=== PATIENT | female | born 1955 | race Caucasian/White ===

== ENCOUNTER 2021-08-30 09:48 | Outpatient (CLI) | payer BC, SELFPAY ==
--- NOTE | 2021-08-30 10:02 | MM_ITS ---
WS: [id number] BILATERAL DIGITAL SCREENING MAMMOGRAPHY WITH CAD CLINICAL INFORMATION: SCREENING HISTORY: Screening mammogram. No current complaints. COMPARISON: March 30, 2020 TECHNIQUE: Bilateral CC and MLO views. FINDINGS: The breasts are composed of heterogeneous fibroglandular density tissue, which can limit the detectio n of small underlying mass lesions. Vascular calcification. A few incidental punctate calcifications LEFT breast. No suspicious mass, asymmetry, calcifications, or architectural distortion. No evidence of malignancy. MM/[place] [id number] IMPRESSION: BI-RADS: 2-Benign FOLLOW UP: 1 Year Follow-up Recommend return to annual screening mammography.
== END 2021-08-30 09:49 | disposition home or self-care (01) ==
PROVIDERS: Family Provider Registered Nurse; PCP Registered Nurse; Visit Provider Family Medicine
DX: Z12.31 Encounter for screening mammogram for malignant neoplasm of breast (principal)
CPT/HCPCS: 77067

== ENCOUNTER 2022-09-03 11:30 | Outpatient (CLI) | payer BC, SELFPAY ==
--- NOTE | 2022-09-03 11:41 | MM_ITS ---
WS: [id number] VIEWS: MLO and CC views both breasts. 3D digital tomosynthesis is also included in this exam. Comparison made with prior exam of 12/31/2018, 03/30/2020, 08/30/2021. Findings: There was no sign of mass, architectural distortion or suspicious calcification in either breast. Sta ble appearing nodular densities in both breasts.The breasts are heterogeneously dense. MM/[place] [id number] Impression: BI-RADS: 2-Benign FOLLOW-UP: 1 Year Follow-up This mammogram was also analyzed by the Computer Aided Detection System R2 Imag e Portrait Consultant.
== END 2022-09-03 11:31 | disposition home or self-care (01) ==
LOC: RAD 11:31
PROVIDERS: PCP Family Medicine; Visit Provider Family Medicine
DX: Z12.31 Encounter for screening mammogram for malignant neoplasm of breast (principal)
CPT/HCPCS: 77063; 77067

== ENCOUNTER 2023-07-12 10:22 | Emergency (ER) | payer BC, SELFPAY ==
[2023-07-12 10:47] VITALS: BP 136/80; PULSE 87; RESP 18; TEMP 36.6; O2SAT 98; BMI 50.1
--- NOTE | 2023-07-12 10:54 | ED_ITS ---
HPI - Extremity Injury (Upper) General: Chief Complaint: Extremity Injury, Upper Stated Complaint: right arm injury Time Seen by Provider: 07/12/23 10:25 Source: patient Mode of arrival: ambulatory Limitations: no limitations History of Present Illness: Patient is a nice 68-year-old female presents to ED today for evaluation of a right elbow injury that she sustained just prior to arrival after she a ccidentally tripped and fell and landed onto the elbow. She denies any other injury sustained during the fall. She denies striking her head or LOC. No neck or back pain. Pain at the elbow joint seems to be worse with palpation and range of motion. MD complaint: injury to: right and elbow Onset (ago): hour(s) Other Extremity Injury: Right: elbow Other injuries: none Place: home Severity: moderate Relieving factors: immobilization Exacerbating factors: movement of extremity Context: fall and direct blow Associated symptoms: Reports no associated symptoms; Denies neck pain Review of Systems Card: Denies: chest pain, palpitations, lightheadedness, syncope or pre- syncope Musc: Reports: joint pain (R elbow) and limited range of motion (R elbow); Denies: neck pain, back pain, extremity pain, extremity swelling, joint redness or joint warmth Neuro: Denies: numbness in extremities or sensory changes Physical Exam Const: COMMON NORMALS: no acute distress, no limitations, alert and well nourished GENERAL APPEARANCE: cooperative NUTRITIONAL APPEARANCE: obese morbidly obese (BMI over 50) HENMT: COMMON NORMALS: normocephalic and atraumatic HEAD & SCALP: normal to inspection, normocephalic and atraumatic FACE & SINUS: normal facial exam Neck/C-Spine: COMMON NORMALS: full ROM GENERAL: Yes normal visual inspection CERVICAL SPINE: No Cervical spine tenderness Back/Pelvis: COMMON NORMALS: thoracic and lumbar spine normal to inspection and no thoracic nor lumbar tenderness Extremity: COMMON NORMALS: normal to inspection and capillary refill normal GENERAL: Yes normal exam except as noted RIGHT UPPER EXTREMITY: Yes shoulder joint (normal examination), Yes elbow joint (normal gross inspection; TTP with palpation and ROM) Right elbow: Yes ROM (significantly limited ROM due to pain) and Yes neurovascular exam (normal), Yes lower arm (TTP proximal to mid forearm; no edema noted; no bony deformity) and Yes wrist (normal examination) Neuro: COMMON NORMALS: moves all extremities, no focal motor deficits and no sensory deficits noted SENSORIUM/ORIENTATION: Yes alert Skin: TRAUMA: no lacerations or abrasions Course Consultations: Consultation #1: Dr. Rivas-recommends consult/follow up with orthopedics in [place] Consultation #2: Dr. Schmidt-[facility] orthopedic surgeon-will see patient in office next week Vital Signs: Vital signs: Vital Signs Temperature 98 F 07/12/23 10:47 Pulse Rate 82 07/12/23 10:58 Respiratory Rate 20 H 07/12/23 11:26 Blood Pressure 142/65 07/12/23 10:58 Pulse Oximetry 95 07/12/23 10:58 Oxygen Delivery Me thod Room Air 07/12/23 10:58 MDM - Extremity Injury (Upper) Medical Decision Making Patient here for right displaced intra-articular fracture of her radial head following a slip and fall. I have spoken to our orthopedic provider Dr. Rivas who recommended patient be seen in [place]. I spoke to Dr. Schmidt with [facility] orthopedics who will see her next week. She will be placed in a splint/sling and given pain medications. Return to ED precautions given. Lab Data Radiology Impressions Elbow X-Ray 07/12/23 10:58 IMPRESSION: 1. Displaced intra-articular fracture of the radial head. 2. Elbow joint effusion. Forearm X-Ray 07/12/23 10:58 IMPRESSION: 1. Comminuted displaced intra-articular fracture of the radial head. 2. Elbow joint effusion. 3. Intact distal radius and ulna. All radiology interpretation(s) finalized by discharge Discharge Plan Discharge Patient Disposition: Home Clinical Impression: Displaced fracture of head of right radius Qualifiers: Encounter type: initial encounter Fracture type: closed Qualified Code(s): S52.121A - Displaced fracture of head of right radius, initial encounter for closed fracture Condition: Stable Prescriptions: New hydrocodone-acetaminophen 5-325 mg tablet 1 tab PO .q 4-6 PRN (Reason: pain) Qty: 20 0RF No Action hydrocodone-acetaminophen 10-325 mg tablet 1 tab PO TID PRN (Reason: Pain) baclofen 10 mg tablet 10 mg PO TID lisinopril 10 mg tablet 10 mg PO DAILY ergocalciferol (vitamin D2) 1,250 mcg (50,000 unit) capsule 1 unit PO Q7D Rx Instructions: on zolpidem 10 mg tablet 10 mg PO BEDTIME pregabalin 100 mg capsule 100 mg PO TID Discharge Orders: Discharge ED (Routine); Ordered 07/12/23 Ordered By: Mariela Wright Referrals: Lilia Willams DO [Primary Care Provider] - Patient Instructions: Elbow Fracture (DC), ORIF of an Elbow Fracture (DC), Opioid Safety, Pain Management Activity Restrictions/Additional Instructions: As we discussed the [facility] orthopedic clinic should be contacting you on Saturday of next week. You most likely will not hear from them Saturday as it is a federal holiday. If you have not heard from them by Saturday please contact them. Dr. Schmidt was the orthopedic surgeon that I consulted with. His office phone number is [phone]. Coding Level of Care Code ED Torch Burner for Isabelle Sarabia
[2023-07-12 10:58] VITALS: BP 142/65; PULSE 82; RESP 17; O2SAT 95; BMI 48.0
--- NOTE | 2023-07-12 10:58 | XRR_ITS ---
PROCEDURE INFORMATION: Exam: XR Right Elbow Exam date and time: 07/12/2023 11:50 AM Age: 68 years old Clinical indication: Injury or trauma; Fall; Blunt trauma (contusions or hematomas); Elbow; Right; Additional info: Fall/injury TECHNIQUE: Imaging protocol: Radiologic exam of the right elbow. Views: 3 or more views. COMPARISON: No relevant prior studies available. FINDINGS: Bones/joints: There is a displaced intra-articular fracture of the radial head. A 1 cm fragment of the radial head is displaced anterolaterally by at least 8 mm from its donor site. Elbow joint alignment is normal. There is a large elbow joint effusion. Soft tissues: Visible soft tissues are unremarkable. XR/XR elbow RT min 3V* [id number] IMPRESSION: 1. Displaced intra-articular fracture of the radial head. 2. Elbow joint effusion.
--- NOTE | 2023-07-12 10:58 | XRR_ITS ---
PROCEDURE INFORMATION: Exam: XR Right Forearm Exam date and time: 07/12/2023 11:12 AM Age: 68 years old Clinical indication: Injury or trauma; Fall; Blunt trauma (contusions or hematomas); Arm, lower; Right; Additional info: Fall/injury TECHNIQUE: Imaging protocol: Radiologic exam of the right forearm. Views: 2 views. COMPARISON: No relevant prior studies available. FINDINGS: Bones/joints: Comminuted displaced intra-articular fracture of the distal radius. Satisfactory elbow alignment. Large elbow joint effusion. Distal radius and ulna are intact. Wrist alignment is grossly normal. Visible portions of the hand and carpal bones are grossly intact but suboptimally evaluated. Soft tissues: Unremarkable XR/XR forearm RT 2V [id number] IMPRESSION: 1. Comminuted displaced intra-articular fracture of the radial head. 2. Elbow joint effusion. 3. Intact distal radius and ulna.
[2023-07-12 11:26] VITALS: RESP 20
[2023-07-12] MEDS: morphine 4 mg/mL SDV 1 mL IM ×2 (11:26→14:19)
[2023-07-12 14:19] VITALS: RESP 16
== END 2023-07-12 15:10 | disposition home or self-care (01) ==
PROVIDERS: Emergency Provider Physician Assistant; PCP Family Medicine
DX: S52.121A Displaced fracture of head of right radius, initial encounter for closed fracture (principal); M25.421 Effusion, right elbow; W01.0XXA Fall on same level from slipping, tripping and stumbling without subsequent striking against object, initial encounter
CPT/HCPCS: 73080; 73090; 96372; 99284; J2270

== ENCOUNTER 2023-09-12 11:24 | Outpatient (CLI) | payer MEDICARE, SELFPAY ==
--- NOTE | 2023-09-12 11:30 | MM_ITS ---
WS: [id number] BILATERAL 3D TOMOSYNTHESIS DIGITAL SCREENING MAMMOGRAPHY WITH CAD CLINICAL INFORMATION: SCREENING HISTORY: Screening mammogram. No current complaints. COMPARISON: 2022 TECHNIQUE: Bilateral CC and MLO views. FINDINGS: The breasts are composed of heterogeneous fibroglandular density tissue, which can limit the detectio n of small underlying mass lesions. No suspicious mass, asymmetry, calcifications, or architectural d istortion. No evidence of malignancy. Vascular calcification. Incidental punctate calcifications. IMPRESSION: MM/[place] [id number] BI-RADS: 2-Benign FOLLOW UP: 1 Year Follow-up Recommend return to annual screening mammography.
== END 2023-09-12 11:25 | disposition home or self-care (01) ==
LOC: MOBLMAM 11:32
PROVIDERS: PCP Family Medicine; Visit Provider Family Medicine
DX: Z12.31 Encounter for screening mammogram for malignant neoplasm of breast (principal)
CPT/HCPCS: 77063; 77067

== ENCOUNTER → 2024-01-27 13:39 | Outpatient (BNVA) | payer MEDICARE, SELFPAY | PROVIDERS: PCP Family Medicine; Visit Provider Dermatology | DX: D04.4 Carcinoma in situ of skin of scalp and neck (principal); L57.0 Actinic keratosis; D18.01 Hemangioma of skin and subcutaneous tissue; L64.8 Other androgenic alopecia | CPT/HCPCS: 17000; 99214 ==

== ENCOUNTER 2024-02-24 12:53 | Emergency (ER) | payer MEDICARE, SELFPAY ==
[2024-02-24] VITALS (7 sets, daily range): BP systolic 108–150; BP diastolic 56–98; PULSE 53–65; RESP 16–17; TEMP 36.5; O2SAT 96–100; BMI 44.4
--- NOTE | 2024-02-24 12:54 | ECG_ITS ---
[facility] Test Date: 2024-02-24 Pat Name: Jillian Webb Department: Room: Gender: Female Web Applications Programmer: : 1955 Requested By: Deandre Vazquez Order Number: [id number] Damian MD: Freddy Mims M.D. Measurements Intervals [place] Rate: 67 P: 40 W[place]: 156 QRS: -51 QRSD: 102 T: -7 QT: 407 QTc: 433 Interpretive Statements SINUS RHYTHM WITH SINUS ARRHYTHMIA LEFT AXIS DEVIATION [QRS AXIS < -30] POSSIBLE ANTERIOR MYOCARDIAL INFARCTION , PROBABLY OLD [30 ms Q WAVE IN V3/V4, OR R < 0.2 mV IN V4] No previous ECG available for comparison Electronically Signed On 02-25-2024 7:38:37 CDT by Freddy Mims M.D. [id number] f
--- NOTE | 2024-02-24 13:00 | XR_ITS ---
WS: [id number] Examination: XR chest 1V portable [id number] Reason for Exam: dyspnea/cough Date: March 03, 2024 Comparison: None. Findings: The heart is nonenlarged. The mediastinum not widened. There is no failure or effusion. There is no consolidation XR/XR chest 1V portable [id number] Impression: No acute lung process is seen.
--- NOTE | 2024-02-24 13:01 | CT_ITS ---
WS: [id number] CT HEAD TECHNIQUE: Noncontrast CT of the head obtained from the skullbase to the vertex. CLINICAL INFORMATION: dizziness COMPARISON: None. DLP: 1064.[address] scans at [facility] use at least one of these dose optimization techniques: automated e xposure control; mA and/or kV adjustment per patient size (includes targeted exams where dose is matc hed to clinical indication); or iterative reconstruction. FINDINGS: No evidence of intracranial hemorrhage or mass effect. Ventricular system and basal cisterns are tracey nt. Mild small vessel changes with mild parenchymal volume loss. No extra-axial fluid collections. No evidence of mass or mass effect. Vascular calcification. Paranasal sinuses and mastoid air cells are well aerated. .Normal visualized soft tissues. CT/CT head wo con* [id number] IMPRESSION: 1. No evidence of intracranial hemorrhage or mass effect. 2. Mild small vessel changes. Mild parenchymal volume loss. 3. No acute intracranial findings.
--- NOTE | 2024-02-24 13:28 | ED_ITS ---
HPI - Dizziness 2 General: Chief Complaint: Dizziness Stated Complaint: Dizzy, nausea Time Seen by Provider: 02/24/24 13:00 History of Present Illness: HPI Narrative: 60-year-old female presents to the [facility] ency room via EMS with complaints of dizziness and nausea that began this morning around 430. No vomiting although she has been very nauseous. She denies any chest pain. She has had some difficulty with urination she denies any fever sweats chills denies any shortness of breath. No vertiginous-like symptoms. Associated symptoms: Denies chest pain or chills Related Data Home Medications Medication Instructions Recorded Confirmed baclofen 10 mg tablet 10 mg PO TID 07/12/23 02/24/24 ergocalciferol (vitamin D2) 1,250 1 unit PO Q7D 07/12/23 02/24/24 mcg (50,000 unit) capsule hydrocodone 10 mg-acetaminophen 1 tab PO TID PRN Pain 07/12/23 02/24/24 325 mg tablet lisinopril 10 mg tablet 10 mg PO DAILY 07/12/23 02/24/24 pregabalin 100 mg capsule 100 mg PO TID 07/12/23 02/24/24 zolpidem 10 mg tablet 10 mg PO BEDTIME 07/12/23 02/24/24 calcium citrate 200 mg (950 mg) 200 mg PO BID 02/24/24 02/24/24 tablet multivitamin 1 tab PO BID 02/24/24 02/24/24 Allergies Allergy/AdvReac Type Severity Reaction Status Date / Time No Known Allergies Allergy Verified 02/24/24 13:02 Review of Systems 2 Const: Denies: fever(s) or chills Card: Denies: chest pain Resp: Denies: dyspnea GI: Denies: abdominal pain : Denies: dysuria, urinary frequency or urinary urgency Musc: Denies: neck pain or back pain Skin/Breast: Denies: rash Neuro: Reports: difficulty walking and dizziness Physical Exam 2 Const: COMMON NORMALS: no acute distress GENERAL APPEARANCE: cooperative and comfortable ORIENTATION/CONSCIOUSNESS: Yes awake, Yes oriented to person, Yes oriented to place and Yes oriented to time HENMT: COMMON NORMALS: normocephalic, atraumatic and hearing grossly normal bilaterally HEAD & SCALP: normocephalic and atraumatic Resp: COMMON NORMALS: normal respiratory effort, No retractions, No use of accessory muscles and clear to auscultation bilaterally AUSCULTATION: clear to auscultation bilaterally Cardio: COMMON NORMALS: regular rate, regular rhythm and No murmurs present (Cardio) RATE: regular rate RHYTHM: regular rhythm GI: COMMON NORMALS: Soft to palpation and No hepatosplenomegaly present A USCULTATION: Yes normoactive bowel sounds PALPATION: Yes Soft to palpation, No Tenderness to palpation present (GI), No Guarding due to palpation present (GI) and Yes No hepatosplenomegaly present Extremity: COMMON NORMALS: normal to inspection, capillary refill normal, no clubbing, cyanosis or edema, no calf tenderness and no pedal edema Neuro: SENSORIUM/ORIENTATION: Yes oriented to person, Yes oriented to place and Yes oriented to time Skin: COMMON NORMALS: no rashes or lesions noted GENERAL SKIN EXAM: no rashes or lesions noted Course 2 Vital Signs: Vital signs: Vital Signs Temperature 97.7 F 02/24/24 12:54 Pulse Rate 57 L 02/24/24 17:35 Respiratory Rate 16 02/24/24 13:57 Blood Pressure 145/65 02/24/24 17:35 Pulse Oximetry 99 02/24/24 17:35 Oxygen Delivery Me thod Room Air 02/24/24 16:30 MDM - Dizziness Medical Decision Making Patient's labs show elevated BUN and creatinine mild volume depletion should her symptoms largely resolved after IV fluid she is up and ambulatory without difficulty will discharge patient home she had no focal neurologic deficits are noted labs imaging EKG all reviewed as found in the chart. Medical Records I reviewed the patient's medical records. Lab Data I reviewed the patient's lab results. 02/24/24 14:46 02/24/24 13:32 Radiology Impressions Chest X-Ray 02/24/24 13:00 Impression: No acute lung process is seen. Head CT 02/24/24 13:01 IMPRESSION: 1. No evidence of intracranial hemorrhage or mass effect. 2. Mild small vessel changes. Mild parenchymal volume loss. 3. No acute intracranial findings. Laboratory Results WBC 6.00 10^3/uL (3.29-11.43) 02/24/24 14:46 Corrected WBC Cancelled 02/24/24 13:32 RBC 4.25 10^6/uL (3.85-5.65) 02/24/24 14:46 Hgb 13.10 g/dL (11.27-16.99) 02/24/24 14:46 Hct 41.6 % (36-47) 02/24/24 14:46 MCV 97.9 fl (85-98) 02/24/24 14:46 MCH 30.8 pg (27-33) 02/24/24 14:46 MCHC 31.5 g/dL (30-55) 02/24/24 14:46 RDW 13.6 % (12.1-15.1) 02/24/24 14:46 Plt Count 246 10^3/cmm (157-399) 02/24/24 14:46 MPV 9.5 fL (7.4-10.4) 02/24/24 14:46 Gran % Cancelled 02/24/24 13:32 Neut % (Auto) 66.3 % 02/24/24 14:46 Lymph % (Auto) 26.8 % 02/24/24 14:46 [place] % (Auto) 5.2 % 02/24/24 14:46 Eos % (Auto) 0.8 % 02/24/24 14:46 Baso % (Auto) 0.7 % 02/24/24 14:46 Neut # (Auto) 3.98 10^3/uL (1.8-7.7) 02/24/24 14:46 Lymph # (Auto) 1.6 10^3/uL (0.8-4.8) 02/24/24 14:46 [place] # (Auto) 0.3 10^3/uL (0.2-0.9) 02/24/24 14:46 Eos # (Auto) 0.1 10^3/uL (0.0-0.8) 02/24/24 14:46 Baso # (Auto) 0.0 10^3/uL (0.0-0.1) 02/24/24 14:46 Absolute Gran (auto) Cancelled 02/24/24 13:32 Nucleated RBC % (auto) 0 % 02/24/24 14:46 Nucleated RBCs # 0.0 /100WBC 02/24/24 14:46 Sodium 139 mmol/L (136-145) 02/24/24 13:32 Potassium 5.2 mmol/L (3.5-5.1) H 02/24/24 13:32 Chloride 110 mmol/L (98-107) H 02/24/24 13:32 Carbon Dioxide 14 mmol/L (22-29) L 02/24/24 13:32 Anion Gap 20.2 (5-19) H 02/24/24 13:32 BUN 32 mg/dL (8-23) H 02/24/24 13:32 Creatinine 1.4 mg/dL (0.5-0.9) H 02/24/24 13:32 GFR Calculation 37.4 mL/min (90-130) L 02/24/24 13:32 Glucose 106 mg/dL (65-115) 02/24/24 13:32 Calculated Osmolality 295 mOsm/kg (285-295) 02/24/24 13:32 Calcium 9.2 mg/dL (8.5-10.5) 02/24/24 13:32 Total Bilirubin 0.3 mg/dL (0.15-1.2) 02/24/24 13:32 AST 19 U/L (0-32) 02/24/24 13:32 ALT 11 U/L (0-33) 02/24/24 13:32 Alkaline Phosphatase 116 U/L (35-105) H 02/24/24 13:32 Total Protein 7.1 g/dL (6.6-8.7) 02/24/24 13:32 Albumin 3.8 g/dL (3.5-5.2) 02/24/24 13:32 Globulin 3.3 g/dL (1.3-4.6) 02/24/24 13:32 Urine Color Yellow (Yellow) 02/24/24 15:14 Urine Appearance Cloudy (CLEAR) A 02/24/24 15:14 Urine pH 5.0 (5-7) 02/24/24 15:14 Ur Specific [place] 1.016 (1.005-1.030) 02/24/24 15:14 Urine Protein Trace (Negative) A 02/24/24 15:14 Urine Glucose (UA) Negative (Normal) 02/24/24 15:14 Urine Ketones Trace (Negative) 02/24/24 15:14 Urine Blood Negative (Negative) 02/24/24 15:14 Urine Nitrate Negative (Negative) 02/24/24 15:14 Urine Bilirubin Negative (Negative) 02/24/24 15:14 Urine Urobilinogen 0.2 mg/dL (Negative) 02/24/24 15:14 Ur Leukocyte Esterase Negative (Negative) 02/24/24 15:14 Urine RBC 0-2 /hpf (0-2) 02/24/24 15:14 Urine WBC 0-5 /hpf (0-5) 02/24/24 15:14 Ur Squamous Epith Cells 0-5 /hpf (0-5) 02/24/24 15:14 Amorphous Sediment Not Reportable 02/24/24 15:14 Urine Bacteria None seen /hpf (NONE) 02/24/24 15:14 Hyaline Casts 5.77 /lpf 02/24/24 15:14 All radiology interpretation(s) finalized by discharge Discharge Plan Discharge Patient Disposition: Home Clinical Impression: Dizziness, Dehydration Condition: Stable Prescriptions: No Action hydrocodone-acetaminophen 10-325 mg tablet 1 tab PO TID PRN (Reason: Pain) baclofen 10 mg tablet 10 mg PO TID lisinopril 10 mg tablet 10 mg PO DAILY ergocalciferol (vitamin D2) 1,250 mcg (50,000 unit) capsule 1 unit PO Q7D Rx Instructions: on Saturday zolpidem 10 mg tablet 10 mg PO BEDTIME pregabalin 100 mg capsule 100 mg PO TID multivitamin Tablet 1 tab PO BID Citracal 200 mg (950 mg) Tablet 200 mg PO BID Discharge Orders: Discharge ED (Routine); Ordered 02/24/24 Ordered By: Deandre Diaz Referrals: Lilia Willams, [Primary Care Provider] - Discharge Diet: Usual diet Discharge Activity: Resume usual activity Patient Instructions: Opioid Safety, Pain Management Activity Restrictions/Additional Instructions: Thank you for choosing [facility] for your healthcare needs today. It is very important that you follow up as instructed or that you return to the Emergency Department should you have concerns or if your condition changes or worsens in any way. You are seen emergency room for lightheadedness and dizziness. Laboratory test showed mild volume depletion. You did improve after IV fluids. You are discharged home follow-up with your primary care doctor within the next week. Coding Level of Care Code ED Fountain Attendant for Isabelle Sarabia NIH stroke score NIHSS Level Of Consciousness - 1a: 0 Level Of Consciousness Questions - 1b: Both Correct Level Of Consciousness Commands - 1c: Both Correct Best Gaze - 2: Normal Visual [place] - 3: No Visual Loss Facial Palsy - 4: Normal Motor Arm Right - 5: No Drift Motor Arm Left - 5: No Drift Motor Leg Right - 6: No Drift Motor Leg Left - 6: No Drift Limb Ataxia - 7: Absent Sensory - 8: Normal Best Language - 9: No Aphasia Dysarthia - 10: Normal Extinction And Inattention - 11: 0 Score Total Score: 0
[2024-02-24 14:20] LABS: Alanine Aminotransferase 11 U/L (0-33); Albumin Level 3.8 g/dL (3.5-5.2); Alkaline Phosphatase 116 U/L (35-105); Blood Urea Nitrogen 32 mg/dL (8-23); Calcium 9.2 mg/dL (8.5-10.5); Carbon Dioxide 14 mmol/L (22-29); Chloride 110 mmol/L (98-107); Creatinine Clr Calc Pharmacy 60.5868; Globulin 3.3 g/dL (1.3-4.6); Glomerular Filtration Rate 37.4 mL/min (90-130); Glucose 106 mg/dL (65-115); Osmolality Calculated 295 mOsm/kg (285-295); Sodium 139 mmol/L (136-145); Total Bilirubin 0.3 mg/dL (0.15-1.2); Total Protein 7.1 g/dL (6.6-8.7)
[2024-02-24 14:21] LABS: Anion Gap 20.2 (5-19); Aspartate Amino Transferase 19 U/L (0-32); Potassium 5.2 mmol/L (3.5-5.1)
[2024-02-24 14:52] LABS: Basophils % 0.7 %; Eosinophils # 0.1 10^3/uL (0.0-0.8); Eosinophils % 0.8 %; Hematocrit 41.6 % (36-47); Lymphocytes # 1.6 10^3/uL (0.8-4.8); Lymphocytes % 26.8 %; Mean Corpuscular HGB Conc 31.5 g/dL (30-55); Mean Corpuscular Hemoglobin 30.8 pg (27-33); Mean Corpuscular Volume 97.9 fl (85-98); Mean Platelet Volume 9.5 fL (7.4-10.4); Monocytes # 0.3 10^3/uL (0.2-0.9); Monocytes % 5.2 %; Neutrophils # 3.98 10^3/uL (1.8-7.7); Neutrophils % 66.3 %; Nucleated Red Blood Cells % 0 %; Platelet Count 246 10^3/cmm (157-399); Red Blood Count 4.25 10^6/uL (3.85-5.65); Red Cell Distribution Width 13.6 % (12.1-15.1)
[2024-02-24] MEDS: sodium chloride 0.9% 1,000 ML 999 ML IV (15:20)
[2024-02-24 16:00] LABS: Charge for UA Resulting for Rev
[2024-02-24 16:01] LABS: Bilirubin Urine Negative (Negative); Blood Urine Negative (Negative); Glucose Urine UA Negative (Normal); Ketones Urine Trace (Negative); Leukocyte Esterase Urine Negative (Negative); Nitrate Urine Negative (Negative); Protein Urine Trace (Negative); Specific Gravity, Urine 1.016 (1.005-1.030); Urine Appearance Cloudy (CLEAR); Urine Color Yellow (Yellow); Urobilinogen Urine 0.2 mg/dL (Negative)
[2024-02-24 16:04] LABS: Bacteria Urine None Seen /hpf; Hyaline Casts Urine 5.77 /lpf; RBC Urine 0-2 /hpf (0-2); Squamous Epithelial Cell Urine 0-5 /hpf (0-5); WBC Urine 0-5 /hpf (0-5)
== END 2024-02-24 17:37 | disposition home or self-care (01) ==
PROVIDERS: Emergency Provider Family Medicine; PCP Family Medicine
DX: R42 Dizziness and giddiness (principal); E86.0 Dehydration
CPT/HCPCS: 36415; 70450; 71045; 80053; 81003; 81015; 85025; 93005; 96360; 96361; 99285; J7030

== ENCOUNTER → 2024-07-30 13:13 | Outpatient (BNVA) | payer MEDICARE, SELFPAY | PROVIDERS: PCP Family Medicine; Visit Provider Nurse Practitioner Family | DX: L64.8 Other androgenic alopecia (principal); D18.01 Hemangioma of skin and subcutaneous tissue; L72.0 Epidermal cyst; Z85.828 Personal history of other malignant neoplasm of skin | CPT/HCPCS: 99214 ==

== ENCOUNTER → 2024-10-29 10:54 | Outpatient (BNVA) | payer MEDICARE, SELFPAY | PROVIDERS: PCP Family Medicine; Visit Provider Nurse Practitioner Family | DX: L64.8 Other androgenic alopecia (principal); L81.4 Other melanin hyperpigmentation; L57.8 Other skin changes due to chronic exposure to nonionizing radiation; Z85.828 Personal history of other malignant neoplasm of skin; L57.0 Actinic keratosis | CPT/HCPCS: 17000; 99214 ==